=== PATIENT | male | born 1940 | race African-American/Black ===

== ENCOUNTER 2016-05-12 12:15 | Inpatient (IN) | payer OTHER ==
[~2016-05-12] VITALS: Ht 175.3 cm; Wt 87.5 kg
--- NOTE | ~2016-05-12 | H ---
[facility] [place] [address] HISTORY AND PHYSICAL Name: ZOË PAIZ Room #: 454-P [facility] IN ..#: [id number] Admission: 05/12/16 Attend Phys: Don Moore MD Discharge: 05/15/16 Date of : 38 Report #: [id number] THIS REPORT FOR: //name// CC: Don BENNETT PCP TYPE OF DICTATION: Admission H and P after [id number] encounter. I did see the patient and examined him on the day of admission. CHIEF COMPLAINT: Found by his family at his living apartment, shivering, hypothermic. HISTORY OF PRESENT ILLNESS: A 76-year-old male with dementia who was living alone in his apartment followed by his children. They were trying to get in contact with him for the last 2 days without any luck, and then his daughter today tried to go to his apartment and he opened the door after some time and he was shivering and he was weak in his lower extremity in his underwear only. The daughter reported that she found the cold water running in the bathroom and she notes that he did not take his medicines for the last 3 days. He stated that he was stuck in the tub for 14 hours. He reported that he got into bed around noon yesterday and did not get out until this morning. The patient's children reported that she found him with the bathtub overflowing with cold water. The patient is incoherent in his talk and he is confused for now, but he denies pain. He denies fever or chills. REVIEW OF SYSTEMS: Except that mentioned in HPI, all other systems are negative. PAST MEDICAL HISTORY: Positive for: 1. Dementia. 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 3. Hypertension. 4. High cholesterol. CURRENT MEDICATIONS: See admission reconciliation sheet. ALLERGIES: No known drug allergies. SOCIAL HISTORY: He does not smoke, drink, or take any illicit drugs. He is living by himself at home. PHYSICAL EXAMINATION: GENERAL: He is confused, not giving straight answers. VITAL SIGNS: His blood pressure is 141/91, temperature 33.6, pulse 100, respirations 18. HEENT: PERRLA. Intact extraocular muscles. No icterus. NECK: Supple, no JVD, no bruit, no thyroid. [facility] [address] [place] [address] HISTORY AND PHYSICAL Name: ZOË PAIZ Room #: 454-P [facility]#: [id number] Admission: 05/12/16 Attend Phys: Don Moore MD Discharge: 05/15/16 Date of : 39 Report #: [id number] CHEST: Good air entry in both sides. Normal respiratory effort. CARDIOVASCULAR: Regular rate and rhythm. No murmur, rub, or gallop. Normal S1, S2. ABDOMEN: Lax, nontender, positive bowel sounds, no organomegaly appreciated. EXTREMITIES: No cyanosis, clubbing, or edema. NEUROLOGIC: Cranial nerves 2-12 are intact. No focal neurological signs. SKIN: Intact, cold to touch, no rash or ulcers. PSYCHIATRIC: A and O x 3. Confused, but with normal affect. LABORATORY DATA: Sodium is 150, potassium 3.5, chloride 108, carbon dioxide 20, anion gap 22, BUN 30, creatinine 2.3, glucose 103, lactic acid is 5.2, calcium 8.2. Troponin less than 0.04. White count is 15.9, hemoglobin 15.8, hematocrit 49.0, normal differential. UA is pending. CT of the head did not show any acute change and also chest x-ray did not show any acute change. ASSESSMENT AND PLAN: 1. Sepsis. The patient meets the criteria for sepsis for now, so we are going to start him on IV antibiotic, broad spectrum antibiotics, and try to figure out source of the infection if we can. UA is pending for now, but we are going to cover him with antibiotic and if we find any infection, then we may narrow his spectrum of coverage. In the same time, blood cultures and urine cultures will be obtained before starting any IV antibiotics. 2. Acute renal failure with creatinine 2.3. We are going to give the patient some IV fluids in the form of half normal saline secondary to hypernatremia and follow his kidney status. 3. Hypernatremia. We are going to give him some may be D5 half normal saline and check his sodium after few hours. 4. Lactic acidosis. We are going to as mentioned above treating him as sepsis and we are going to follow on the level of the lactic acid. This patient is going to be monitored closely and his medicines will be adjusted accordingly. The patient is currently full code and we are going to do DVT and GI prophylaxis. <ELECTRONICALLY SIGNED> By: Don Moore MD 05/23/16 1709 1428 190 Don Moore MD /nt
[~2016-05-12 12:15] MED LIST: ARICEPT 5 MG TAB5 MG PO; ASPIRIN81 M2 PO; ATORVASTATIN CA40 MG PO; HYDROCODONE-AP1 EA10 PO; LISINOPRIL40 MG PO; NEXIUM40 MG PO; NORCO 5-325 TA1 EACH PO; PROAIR HFA8.5 GM INH; VITAMIN D 5050000 I1 PO
[2016-05-12 12:17] VITALS: BP 141/91
[2016-05-12 12:45] LABS: HEMOGLOBIN 15.8 gm/dL (14.0-18.0); MCH 27.7 pg (26.0-34.0); MCHC 32.2 % (28.0-37.0); MCV 86.1 fL (80.0-100.0); PLATELET COUNT 304 thou/uL (150-400); RBC 5.69 mil/uL (4.50-6.00); WBC 15.9 thou/uL (4.0-11.0)
[2016-05-12 12:46] LABS: MANUAL DIFF YES
[2016-05-12 13:13] LABS: ABSOLUTE NEUTROPHILS 13.4 thou/uL (1.4-8.2); ANISOCYTOSIS 1+; TOTAL CELL COUNT 100
[2016-05-12 13:29] LABS: ANION GAP 22 mmol/L (7-16); BUN 30 mg/dL (7-18); CALCIUM 8.2 mg/dL (8.5-10.1); CHLORIDE 108 mmol/L (98-107); CO2 20 mmol/L (21-32); CREATININE 2.3 mg/dL (0.6-1.3); GLUCOSE 103 mg/dL (70-99); POTASSIUM 3.5 mmol/L (3.5-5.1); SODIUM 150 mmol/L (136-145); TROPONIN-I < 0.04 ng/mL (<0.04-0.07)
[2016-05-12 14:29] VITALS: BP 104/77
[2016-05-12 14:38] LABS: URINE BILIRUBIN NEGATIVE (Negative); URINE BLOOD 3+ (Negative); URINE COLOR YELLOW; URINE GLUCOSE-RANDOM* NEGATIVE (Negative); URINE KETONES NEGATIVE (Negative); URINE LEUKOCYTES-REFLEX NEGATIVE (Negative); URINE PROTEIN (DIPSTICK) 1+ (Negative); URINE SPECIFIC GRAVITY 1.025 (1.003-1.035); URINE UROBILINOGEN 0.2 E.U./dl (0.2-1.0)
[2016-05-12 14:50] LABS: CASTS None Seen /LPF (None Seen); CRYSTALS None Seen /LPF (None Seen); SQUAMOUS None Seen /LPF (0-3); URINE RBC 0-2 Rare /HPF (0-2); URINE WBC-REFLEX 0-5 Rare /HPF (0-5)
[2016-05-12 15:30] VITALS: BP 121/47
[2016-05-12 20:04] VITALS: BP 105/67
[2016-05-12 23:50] VITALS: BP 103/61
[2016-05-13 01:19] LABS: HEMATOCRIT 36.2 % (42.0-52.0); MCH 27.1 pg (26.0-34.0); MCHC 32.6 % (28.0-37.0); RBC 4.36 mil/uL (4.50-6.00); RDW 16.5 % (10.5-14.5); WBC 16.3 thou/uL (4.0-11.0)
[2016-05-13 01:24] LABS: HEMOGLOBIN 11.8 gm/dL (14.0-18.0)
[2016-05-13 01:46] LABS: ALBUMIN 2.5 g/dL (3.4-5.0); CALCIUM 7.3 mg/dL (8.5-10.1); CREATININE 1.5 mg/dL (0.6-1.3); POTASSIUM 3.5 mmol/L (3.5-5.1); TOTAL BILIRUBIN 2.2 mg/dL (<0.1-1.0); TOTAL PROTEIN 5.9 g/dL (6.4-8.2)
[2016-05-13 03:44] VITALS: BP 112/69
[2016-05-13 07:22] VITALS: BP 110/76
[2016-05-13 08:00] VITALS: BP 110/76
[2016-05-13 13:45] VITALS: BP 118/86
[2016-05-13 16:20] VITALS: BP 116/71
[2016-05-13 19:20] VITALS: BP 129/70
[2016-05-14 04:10] VITALS: BP 116/71
[2016-05-14 05:36] LABS: ABSOLUTE NEUTROPHILS 4.5 thou/uL (1.4-8.2); BASOPHILS 1.3 % (0.0-2.0); EOSINOPHILS 7.3 % (0.0-3.0); HEMATOCRIT 32.9 % (42.0-52.0); LYMPHOCYTES 29.6 % (24.0-44.0); MCH 27.9 pg (26.0-34.0); MCHC 33.5 % (28.0-37.0); MCV 83.4 fL (80.0-100.0); PLATELET COUNT 223 thou/uL (150-400); POLYS 51.8 % (36.0-66.0); RBC 3.94 mil/uL (4.50-6.00); RDW 16.8 % (10.5-14.5); WBC 8.8 thou/uL (4.0-11.0)
[2016-05-14 05:46] LABS: MANUAL DIFF NO
[2016-05-14 05:49] LABS: CALCIUM 7.9 mg/dL (8.5-10.1); CREATININE 1.2 mg/dL (0.6-1.3); POTASSIUM 3.5 mmol/L (3.5-5.1)
[2016-05-14 09:13] VITALS: BP 120/76
[2016-05-14 12:04] VITALS: BP 118/70
[2016-05-14 12:08] VITALS: BP 118/70
[2016-05-14 16:22] VITALS: BP 114/69
[2016-05-14 19:46] VITALS: BP 113/69
[2016-05-15 03:50] VITALS: BP 113/64
[2016-05-15 05:43] LABS: ABSOLUTE NEUTROPHILS 4.5 thou/uL (1.4-8.2); BASOPHILS 1.3 % (0.0-2.0); EOSINOPHILS 7.2 % (0.0-3.0); HEMATOCRIT 32.4 % (42.0-52.0); HEMOGLOBIN 10.8 gm/dL (14.0-18.0); LYMPHOCYTES 28.5 % (24.0-44.0); MANUAL DIFF NO; MCH 27.7 pg (26.0-34.0); MCHC 33.4 % (28.0-37.0); MONOCYTES 10.8 % (1.0-8.0); PLATELET COUNT 238 thou/uL (150-400); POLYS 52.2 % (36.0-66.0); RDW 16.6 % (10.5-14.5); WBC 8.7 thou/uL (4.0-11.0)
[2016-05-15 05:59] LABS: CALCIUM 8.1 mg/dL (8.5-10.1); CREATININE 1.1 mg/dL (0.6-1.3); POTASSIUM 3.6 mmol/L (3.5-5.1)
[2016-05-15 08:10] VITALS: BP 117/78
[2016-05-15 12:30] VITALS: BP 135/78
[2016-05-15 16:23] VITALS: BP 135/78
== END 2016-05-15 16:43 | disposition home or self-care (01) | DRG 871 ==
LOC: ER 12:15 → EROBS 14:04 → 4W 14:04
PROVIDERS: Emergency Medicine; Hospitalist
DX: A41.9 Sepsis, unspecified organism (principal); N17.0 Acute kidney failure with tubular necrosis; E87.2 Acidosis; I69.951 Hemiplegia and hemiparesis following unspecified cerebrovascular disease affecting right dominant side; E87.0 Hyperosmolality and hypernatremia; I10 Essential (primary) hypertension; T68.XXXA Hypothermia, initial encounter; D64.9 Anemia, unspecified; Z60.2 Problems related to living alone; E86.0 Dehydration; Z79.82 Long term (current) use of aspirin; Z79.899 Other long term (current) drug therapy
CPT/HCPCS: 10045

== ENCOUNTER 2016-08-27 15:24 | Inpatient (IN) | payer OTHER ==
[~2016-08-27] VITALS: Ht 175.3 cm; Wt 82.1 kg
--- NOTE | ~2016-08-27 | 2DMMODE ---
[facility] [place] [address] 2 D/M-MODE ECHOCARDIOGRAM Name: CHENCHOZOË Garcia Room #: 420-P [facility]#: [id number] Admission: 08/27/16 Attend Phys: Brandon Loredo, Discharge: Date of : 38 Date of Service: 08/29/16 1301 Report #: [id number] THIS REPORT FOR: //name// APPROVED REPORT Study performed: 08/29/2016 09:54:34 EXAM: Comprehensive 2D, Doppler, and color-flow Echocardiogram Patient Location: In-Patient Room #: 420 Blood Pressure: 130/78 mmHg HR: 81 bpm Other Information Study Quality: Adequate Indications Hypertension/HDD Volumes Left Atrial Volume (Systole) Single Plane 4CH: 22.99 mL Single Plane 2CH: 25.34 mL LA ESV Index: 13.00 mL/m2 Aortic Valve AoV Peak Tarik.: 1.18 m/s AO Peak Gr.: 6.55 mmHg LV Max P.71 mmHg LV Max: 0.82 m/s Mitral Valve E/A Ratio: 0.8 MV Decel. Time: 238.74 ms MV E Max Tarik.: 0.77 m/s MV A Tarik.: 0.95 m/s MV PHT: 69.23 ms Pulmonary Valve PV Peak Tarik.: 1.00 m/s PV Peak Gr.: 4.04 mmHg Tricuspid Valve RAP Estimate: 5.00 mmHg [facility] [address] [place] [address] 2 D/M-MODE ECHOCARDIOGRAM Name: ZOË PAIZ Room #: 420-P [facility] IN ..#: [id number] Admission: 08/27/16 Attend Phys: Brandon Loredo, Discharge: Date of : 39 Date of Service: 08/29/16 1301 Report #: [id number] Left Ventricle The left ventricle is normal size. There is normal LV segmental wall motion. There is normal left ventricular wall thickness. Left ventricular systolic function is normal. The left ventricular ejection fraction is within the normal range. LVEF is 55-60%. Grade I - abnormal relaxation pattern. Right Ventricle The right ventricle is normal size. The right ventricular systolic function is normal. Atria The left atrium size is normal. The right atrium size is normal. Aortic Valve The aortic valve is grossly normal in structure. No aortic regurgitation is present. There is no aortic valvular stenosis. Mitral Valve The mitral valve is normal in structure. There is no mitral valve regurgitation noted. No evidence of mitral valve stenosis. Tricuspid Valve The tricuspid valve is normal in structure. There is no tricuspid valve regurgitation noted. Pulmonic Valve The pulmonary valve is normal in structure. There is no pulmonic valvular regurgitation. Great Vessels The aortic root is normal in size. IVC is normal in size and collapses with >50% inspiration Pericardium There is no pericardial effusion. <Conclusion> Left ventricular systolic function is normal. There is normal LV segmental wall motion. LVEF 55-60%. Grade I - abnormal relaxation pattern. The aortic valve is grossly normal in structure. No aortic regurgitation or stenosis. The mitral valve is normal in structure. There is no mitral valve [facility] [address] [address] 2 D/M-MODE ECHOCARDIOGRAM Name: ZOË PAIZ Room #: 420-P [facility] IN [facility]#: [id number] Admission: 08/27/16 Attend Phys: Brandon Loredo, Discharge: Date of : 39 Date of Service: 08/29/16 1301 Report #: [id number] regurgitation noted. Pulmonary artery could not be reliably ascertained. There is no pericardial effusion. <ELECTRONICALLY SIGNED> By: Marcos Montana MD, FACC 08/29/16 130 00 00 Marcos Montana MD, FACC /INF
--- NOTE | ~2016-08-27 | HC ---
[facility] [place] [address] CONSULTATION Name: ZOË PAIZ Room #: 420-P [facility] IN ..#: [id number] Admission: 08/27/16 Attend Phys: Brandon Loredo MD Discharge: Date of : 39 Report #: [id number] THIS REPORT FOR: //name// CC: Brandon Bernstein HISTORY OF PRESENT ILLNESS: The patient is a 76-year-old -O[place]i male with a prior history of a CVA 4 years ago with residual right-sided weakness. He has had problems with worsening falls with 3 falls over the last couple of weeks. He has the right-sided weakness, drags his right foot and his right leg can give out. He lives alone and his family is concerned. He does have a lifeline. He was admitted for further evaluation. PAST MEDICAL HISTORY: Includes the above noted CVA with right-sided weakness/hemiparesis. He has a history of hypertension and high cholesterol. There is a note of some dementia. HABITS: Former smoker, quit greater than a year ago. Past history of ETOH usage. MEDICATIONS: Please see the full medication listing. ALLERGIES: No known drug allergies. SOCIAL HISTORY: Lives in an apartment alone, premorbid cane ambulator. He has the lifeline as noted above. There are no steps. He used a scooter for longer distances. REVIEW OF SYSTEMS: Did not offer any current complaints of chest pain, shortness of breath or abdominal discomfort. No focal extremity pain complaints. Notes that the right leg will give way at the knee. There was a history of some left shoulder pain, although he did not complain of specific pain to me. FAMILY HISTORY: Noncontributory. PHYSICAL EXAMINATION: GENERAL: A 76-year-old male, in no obvious distress. He is alert and oriented. VITAL SIGNS: Temperature is 98.6, pulse 82, respirations 16, and blood pressure 123/80. HEENT: Appeared to be benign. NEUROLOGIC: Cranial nerves are grossly intact. Facies are symmetric. He is able to verbalize reasonably well. EXTREMITIES: He has functional range of motion of the left upper and left lower extremity without obvious focal weakness. Right upper extremity strength is probably a grade 4-/5. DTRs are trace to 1. Right lower extremity strength is [address] [address] CONSULTATION Name: ZOË PAIZ Room #: 420-P [facility] IN ..#: [id number] Admission: 08/27/16 Attend Phys: Brandon Loredo MD Discharge: Date of : 39 Report #: [id number] 4- to 3+/5. DTRs are trace to 1. He has intact sensation to simultaneous stimulation. There is no clonus. He is contact guard for basic transfers and short distance ambulation. ASSESSMENT: A 76-year-old white male with the following problem list: 1. Right-sided hemiparesis. 2. Frequent falls with gait instability. 3. History of cerebrovascular accident. 4. History of dementia, but nevertheless has [facility]. 5. Hypertension. 6. Elevated cholesterol. PLAN: We are assessing the patient to see if he meets criteria for an acute 5 North rehab stay. We will follow along with you. By: [id number] 54 Abdullahi Pagan MD /nt
[2016-08-27 15:29] VITALS: BP 113/84
[2016-08-27] MEDS ORDERED: LIPITOR80 MG PO (15:32)
[2016-08-27] MEDS ORDERED: ZYRTEC10 M5 PO (15:33)
[2016-08-27] MEDS ORDERED: VITAMIN B-12500 MCG PO (15:34)
[2016-08-27] MEDS ORDERED: NORVASC10 MG PO (15:34)
[2016-08-27 16:24] LABS: ABSOLUTE NEUTROPHILS 6.6 thou/uL (1.4-8.2); BASOPHILS 1.2 % (0.0-2.0); EOSINOPHILS 6.3 % (0.0-3.0); HEMATOCRIT 33.6 % (42.0-52.0); HEMOGLOBIN 11.2 gm/dL (14.0-18.0); LYMPHOCYTES 18.3 % (24.0-44.0); MCH 26.5 pg (26.0-34.0); MCHC 33.4 g/dL (28.0-37.0); MCV 79.5 fL (80.0-100.0); PLATELET COUNT 445 thou/uL (150-400); POLYS 66.2 % (36.0-66.0); RBC 4.23 mil/uL (4.50-6.00); RDW 16.3 % (10.5-14.5)
[2016-08-27 16:26] LABS: MANUAL DIFF NO
[2016-08-27 16:31] LABS: CALCIUM 9.3 mg/dL (8.5-10.1); CREATININE 1.2 mg/dL (0.7-1.3); POTASSIUM 3.4 mmol/L (3.5-5.1)
[2016-08-27 17:39] LABS: URINE BILIRUBIN NEGATIVE (Negative); URINE BLOOD 1+ (Negative); URINE COLOR YELLOW; URINE GLUCOSE-RANDOM* NEGATIVE (Negative); URINE KETONES NEGATIVE (Negative); URINE LEUKOCYTES-REFLEX NEGATIVE (Negative); URINE PROTEIN (DIPSTICK) TRACE (Negative)
[2016-08-27 17:42] LABS: CASTS None Seen /LPF (None Seen); SQUAMOUS None Seen /LPF (0-3); URINE RBC 3-10 Few /HPF (0-2); URINE WBC-REFLEX None Seen /HPF (0-5)
[2016-08-27 17:43] LABS: CRYSTALS None Seen /LPF (None Seen)
[2016-08-27 19:26] VITALS: BP 113/67
[2016-08-27 20:33] VITALS: BP 138/87
[2016-08-28 05:32] LABS: HEMATOCRIT 34.5 % (42.0-52.0); HEMOGLOBIN 11.3 gm/dL (14.0-18.0); MCHC 32.7 g/dL (28.0-37.0); MCV 79.4 fL (80.0-100.0); RBC 4.34 mil/uL (4.50-6.00); RDW 16.1 % (10.5-14.5); WBC 9.6 thou/uL (4.0-11.0)
[2016-08-28 05:41] VITALS: BP 127/82
[2016-08-28 05:47] LABS: CALCIUM 9.4 mg/dL (8.5-10.1); CREATININE 1.5 mg/dL (0.7-1.3); POTASSIUM 3.7 mmol/L (3.5-5.1)
[2016-08-28 07:10] VITALS: BP 123/80
[2016-08-28 20:00] VITALS: BP 125/73
[2016-08-29 04:31] VITALS: BP 121/70
[2016-08-29 05:45] LABS: CHOLESTEROL 112 mg/dL (<200); HDL CHOLESTEROL 30 mg/dL (>40); LDL CHOLESTEROL 61 mg/dL (<100); TC:HDL 3.7 Ratio (Not establshd); TRIGLYCERIDE 105 mg/dL (<150); VLDL 21 mg/dL (<40)
[2016-08-29 05:50] LABS: SERUM ASSESSMENT Clear
[2016-08-29 07:17] VITALS: BP 130/78
[2016-08-30 02:10] LABS: GLYCOHEMOGLOBIN (HGB A1C) 6.2 % (4.8-5.6)
== END 2016-08-29 15:33 | DRG 57 ==
LOC: ER 15:24 → EROBS 17:44 → 4E 17:44
PROVIDERS: Emergency Medicine; Internal Medicine; Psychiatry & Neurology Neurology
DX: G81.91 Hemiplegia, unspecified affecting right dominant side (principal); E44.0 Moderate protein-calorie malnutrition; R53.81 Other malaise; I10 Essential (primary) hypertension; E78.00 Pure hypercholesterolemia, unspecified; F03.90 Unspecified dementia, unspecified severity, without behavioral disturbance, psychotic disturbance, mood disturbance, and anxiety; W18.39XA Other fall on same level, initial encounter; R26.81 Unsteadiness on feet; E78.5 Hyperlipidemia, unspecified; D63.8 Anemia in other chronic diseases classified elsewhere; Y93.89 Activity, other specified; Z68.26 Body mass index [BMI] 26.0-26.9, adult; Y92.89 Other specified places as the place of occurrence of the external cause; Y99.8 Other external cause status; Z87.891 Personal history of nicotine dependence
CPT/HCPCS: 10084

== ENCOUNTER 2016-08-28 14:53 | Inpatient (IN) | payer OTHER ==
[~2016-08-28] VITALS: Ht 175.3 cm; Wt 83.1 kg
--- NOTE | ~2016-08-28 | H ---
[facility] [place] [address] HISTORY AND PHYSICAL Name: ZOË PAIZ Room #: 505-P [facility] IN ..#: [id number] Admission: 08/29/16 Attend Phys: Abdullahi Pagan MD Discharge: Date of : 39 Report #: [id number] THIS REPORT FOR: //name// CC: Abdullahi Bernstein DATE OF SERVICE: 08/29/2016 DATE OF SERVICE: 08/30/2016 HISTORY OF PRESENT ILLNESS: This is 76-year-old -[place]ian male with a prior history of CVA 4 years ago with residual right-sided weakness. He has had problems with worsening falls with 3 falls over the last couple of weeks. He has the right-sided weakness, drags his right foot and his right leg can give out. He lives alone and his family was having more and more concerns. He was initially admitted for acute in-hospital evaluation. He was seen by Neurology. MRI of the brain showed atrophy with an MRA showing tortuosity, but no significant stenosis. His lipids profile was normal and he is on a statin. He also takes aspirin. With his significant functional decline and concern with the frequent falls, the right-sided weakness, he has been admitted for an acute in-hospital inpatient rehabilitation stay. PAST MEDICAL HISTORY: Includes the above noted CVA with right-sided weakness and hemiparesis. He has a history of hypertension and high cholesterol. There is a note of some dementia. HABITS: Former smoker, quit greater than a year ago. Past history of ETOH usage. MEDICATIONS: Please see the full medication listing. Each of these was individually reconciled upon admission. The medication list includes his medications as well as supplements, [id number] medications, etc. ALLERGIES: No known drug allergies. SOCIAL HISTORY: Lives in an apartment alone, premorbid cane ambulator. He has a life line. There are no steps. He used to scooter for longer distances. REVIEW OF SYSTEMS: No current complaints of chest pain, shortness of breath, abdominal discomfort. No focal extremity pain complaints other than at the right leg will give away at the knee and contribute to his falls. He had some prior left shoulder pain. Did not offer any other complaints regarding the other bodily systems. FAMILY HISTORY: Noncontributory. [address] [address] HISTORY AND PHYSICAL Name: ZOË PAIZ Room #: 505-P [facility] IN .R.#: [id number] Admission: 08/29/16 Attend Phys: Abdullahi Pagan MD Discharge: Date of : 39 Report #: [id number] PHYSICAL EXAMINATION: GENERAL: A 76-year-old -G[place]ian male in no obvious distress. VITAL SIGNS: Last recorded temperature 97.9, pulse 86, respirations 19, blood pressure 132/78. The patient is alert, oriented, appears to be a good historian. HEENT: Facies appeared to be symmetric. Cranial nerves are grossly intact. HEENT appeared benign. CHEST: Sounded clear to auscultation. CARDIOVASCULAR: Regular rate and rhythm. ABDOMEN: Bowel sounds positive, nontender. GENITOURINARY AND RECTAL: Deferred. EXTREMITIES: He has functional range of motion of the left upper and left lower extremity without obvious focal weakness. Right upper extremity strength is a grade 4- to 4/5. DTRs are trace to 1. Right lower extremity strength is a grade 4- to 3+/5. DTRs are trace to 1. Sensation was intact to simultaneous stimulation bilateral upper and lower extremities. There is no clonus. He has been needing contact assistance for basic transfers and short distance mobility with monitoring regarding fall prevention. ASSESSMENT: A 76-year-old right-handed -G[place]ian male with the following problem list: 1. Right-sided hemiparesis. 2. Frequent falls with gait instability. 3. History of cerebrovascular accident. 4. History previously of dementia, but nevertheless was living alone in an apartment with life line. He appears to be a good historian with basic history taking. 5. Hypertension. 6. Elevated cholesterol. PLAN: The patient is admitted for an acute in-hospital inpatient rehabilitation stay. From a postadmission physician evaluation perspective, there are no relevant changes since the preadmission screening. Please see the above review of prior and current medical and functional conditions and comorbidities. Please see the patient's previous and current functional status. As far as risk of complications, he does have the above noted comorbidities. Initial plan of care involves the interdisciplinary acute inpatient rehabilitation program with the goal of maximizing the patient's functional independence, so that he can hopefully return back to his prior living situation. Measurable functional goals would be for the patient to become modified independent with transfers, mobility, ADLs, gait and especially to decrease the falls and improve his overall independence. Prognosis is reasonably good. We would hope for a fairly short length of stay may be 7-10 days or up to 2 weeks depending upon how he does. Potential barriers would include his medical comorbidities and decreased functional status. [facility] [address] [place] [address] HISTORY AND PHYSICAL Name: ZËO PAIZ Room #: 505-P [facility] IN M.R.#: [id number] Admission: 08/29/16 Attend Phys: Abdullahi Pagan MD Discharge: Date of : 39 Report #: [id number] Patient diagnosis is appropriate. He meets the medical necessity criteria and we will have Neurology continue to follow as well as Internal Medicine for medical management. He does have the tolerance for therapies and has appropriate discharge goals back to the home setting. <ELECTRONICALLY SIGNED> By: Abdullahi Pagan MD 09/10/16 1518 0816 0911 Abdullahi Pagan MD /nt
--- NOTE | ~2016-08-28 | D ---
[facility] [place] [address] DISCHARGE SUMMARY Name: ZOË PAIZ Radha Room #: 505-P [facility] IN ..#: [id number] Admission: 08/29/16 Attend Phys: Abdullahi Pagan MD Discharge: 09/16/16 Date of : 39 Report #: [id number] THIS REPORT FOR: //name// CC: Abdullahi Bernstein DATE OF SERVICE: 09/16/2016 DATE OF SERVICE: 09/16/2016 HISTORY OF PRESENT ILLNESS: The patient is a 76-year-old -[place]er male with prior history of CVA with residual right-sided weakness. He had problems with worsening falls with right-sided weakness and dragging his right foot and right leg giving out. His family was having more and more concerns. He was originally admitted to the hospital seen by Neurology. He was noted to have significant functional decline with right-sided weakness and frequent falls. MRI showed atrophy of the brain with MRA showing tortuosity but no significant stenosis. The patient was admitted with right-sided hemiparesis, frequent falls with gait instability, history of a prior CVA and a history of some previous dementia. Please see the full admission note dictation. HOSPITAL COURSE: The patient was involved in the inpatient rehabilitation program. He initially was improving as far as his functional mobility and ADLs although was not fell that he can go back to the home setting. We had a discussion with the patient's daughter and a decision was made that the patient would need to go for a long term facility stay initially upon discharge from rehabilitation. The patient then again running a fever up to a 101. He had issues with right knee pain and swelling and noted effusion. He was seen by Orthopedics. It is thought that infection was not significantly likely and that this was most likely a flare from osteoarthritis. The knee was tapped by Orthopedics. This was thought to most likely be inflammatory in nature with cultures negative and no crystal seen. It may consider a steroid injection after the final culture results are negative. His overall function decline. Neurology has ordered an MRI of the right knee as well as the right shoulder, which was causing him some pain. The patient also underwent ultrasound examination of his abdomen with the febrile episode and the elevation of his liver function test. The ultrasound of the abdomen revealed gallbladder pack with stones. There was mild wall thickening. He also has some renal cysts. The patient is now being transferred off the acute rehab vergara back to the medical service for further completion of the workup and likely surgical consultation, etc. DISCHARGE DIAGNOSES: Include: 1. Right-sided hemiparesis. [address] [address] DISCHARGE SUMMARY Name: ZOË PAIZ Room #: 505-P [facility] IN ..#: [id number] Admission: 08/29/16 Attend Phys: Abdullahi Pagan MD Discharge: 09/16/16 Date of : 39 Report #: [id number] 2. Frequent falls with gait instability. 3. History of a cerebrovascular accident. 4. Cholecystitis with multiple gallstones noted on abdominal ultrasound of his thigh. 5. Febrile episode as above. 6. Right knee effusion, status post chafing. 7. Right shoulder discomfort with MRI pending. Plan again being discharged back to the acute Med/Surg vergara. We will defer further management, activity level, etc. as per the accepting service. <ELECTRONICALLY SIGNED> By: Abdullahi Pagan MD 09/18/16 1528 1314 1536 Abdullahi Pagan MD /nt
--- NOTE | ~2016-08-28 | HC ---
[facility] [place] [address] CONSULTATION Name: ZOË PAIZ Room #: 505-P [facility] IN ..#: [id number] Admission: 08/29/16 Attend Phys: Abdullahi Pagan MD Discharge: Date of : 39 Report #: [id number] THIS REPORT FOR: //name// CC: Abdullahi Bernstein DATE OF SERVICE: 09/13/2016 ORTHOPEDIC CONSULT AND PROCEDURE NOTE DATE OF ADMISSION: 08/29/2016. DATE OF CONSULTATION: 09/13/2016. REASON FOR CONSULTATION: Right knee pain and swelling. HISTORY OF PRESENT ILLNESS: The patient is a 76-year-old male with a 2-week history of right knee swelling. He reports having problems with that knee since his stroke approximately 4 years ago. He denies any new injury. He denies any significant numbness or tingling in the extremities. Denies any other extremity complaints. He reports the pain is sharp to dull and worse with motion. He has had no specific treatment for it. PAST MEDICAL HISTORY: Significant for right-sided weakness and hemiparesis after a stroke, hypertension, hypercholesterolemia. There is history of some mild dementia. SOCIAL HISTORY: He denies smoking or drinking alcohol. He is right hand dominant. His family reports that he does not use a wheelchair. He does use a scooter at home and a walker. He lives alone in an apartment. He does have 2 daughters at his bedside. ALLERGIES: No known drug allergies. MEDICATIONS: The patient's MAR was reviewed, which shows magnesium oxide, oxycodone, , vitamin D, donepezil, vitamin B12, atorvastatin, aspirin, amlodipine, pantoprazole, loratadine, senna, milk of magnesium, docusate, and bisacodyl. LABORATORY DATA: Done on 09/13/2016, show a white blood cell count 11.7, hemoglobin 10.2, hematocrit 30.7, and platelet count of 17.3. Chemistry on 09/13/2016, shows sodium of 135, glucose is elevated at 135. Magnesium is low at 1.7. Albumin is low at 2.2. PHYSICAL EXAMINATION: GENERAL: He is alert and oriented times 3. He interacts appropriately. He [address] [address] CONSULTATION Name: ZOË PAIZ Room #: 505-P [facility] IN [facility]#: [id number] Admission: 08/29/16 Attend Phys: Abdullahi Pagan MD Discharge: Date of : 39 Report #: [id number] does appear to have some confusion. He is a well-developed, well-nourished male with a normal affect. He is pleasant to converse with. VITAL SIGNS: Most recent vital signs show a temperature of 37.4, pulse rate 121, respiration rate 16, blood pressure 137/84, and pulse oximetry is 93% on room air. He has his 2 daughters and grandchildren present at the bedside and during the aspiration part of the visit. EXTREMITIES: Examination of his bilateral upper extremities, skin is clean, dry and intact. He has brisk capillary refill. He makes full fist, full extension, full wrist, forearm, functional elbow and shoulder motion. He has no tenderness to palpation of the bilateral sternum and clavicles, bilateral shoulders, arms, elbows, forearms, wrists and hands. Right lower extremity exam, he has some mild diffuse edema at the entire extremity and moderate knee joint effusion without erythema. There is warmth and diffuse knee joint tenderness. There is no pain with range of motion of the right hip, ankle, or foot. There is significant pain with range of motion of the right knee. Left lower extremity examination: Sensation is intact to light touch throughout. He has brisk capillary refill. EHL, FHL, dorsiflexion and plantar flexion are intact. He has no pain with range of motion of his left knee, ankle, hip or knee. RADIOGRAPHS: AP and lateral of the right knee show knee joint effusion. No acute injury. IMPRESSION AND PLAN: Right knee joint effusion. Infection is not significantly likely, most likely this a flare from osteoarthritis. I discussed the diagnosis and recommend aspiration to rule out infection. We will also send the fluid for crystal analysis, cell count, culture, Gram stain. The patient and family consented. DESCRIPTION OF PROCEDURE: Under sterile conditions, 1 mL of 1% lidocaine was injected in subcutaneous tissue only at the superolateral aspect of the knee, and then, after adequate anesthesia was obtained and under sterile conditions, an 18-gauge needle was inserted into the knee joint and 24 mL of yellow serous fluid was obtained with appropriate viscosity. It was sent down to the lab, and the wound was dressed with sterile gauze. He tolerated the procedure well. We will continue to follow him. Questions were encouraged and answered to the best of my ability. By: [id number] Valerie Soto MD /nt
--- NOTE | ~2016-08-28 | PLAN ---
[facility] [place] [address] REHAB UNIT PLAN OF CARE Name: ZOË PAIZ Room #: 505-P ADM IN M.R.#: [id number] Admission: 08/29/16 Attend Phys: Abdullahi Pagan MD Discharge: Date of : 39 Report #: [id number] THIS REPORT FOR: //name// CC: Abdullahi Bernstein DATE OF SERVICE: 08/31/2016 The patient was seen back earlier. He was in no distress. Last recorded temperature 36.7, pulse 92, respirations 18, blood pressure 150/82. He has had some complaints of left shoulder pain for which he has received pain medications. He is voiding into the urinal without difficulty. He has been involved in the therapy program and transfers are moderate assist with gait min assist up to 45 feet with a front-wheeled walker. In occupational therapy, upper body dressing is max assist with lower body dressing dependent. Speech therapy is noted to have mild comprehensive deficits, mild expressive deficits. ASSESSMENT: 1. Right-sided hemiparesis. 2. Frequent falls with gait instability. 3. History of cerebrovascular accident. 4. Previous history of dementia, but nevertheless was living alone in an apartment with [facility]. 5. Hypertension. 6. Elevated cholesterol. PLAN: The overall plan of care is based on the preadmission screen, post-admission physician evaluation and information garnered from therapy assessments. 1. Estimated length of stay is probably at least 10 days to 2 weeks and likely longer as he does have significant functional deficits, especially with his ADLs and has definite balance concerns with the frequent falls. 2. Medical prognosis is reasonably good. 3. Anticipated interventions includes the interdisciplinary acute inpatient rehabilitation program with PT, OT and speech, rehabilitation nursing assisting regarding medication management, skin care prophylaxis, bowel and bladder issues and nursing education. Neurology is involved as well as the consulting physicians. 4. Anticipated functional outcomes would be for the patient to become modified independent at least at the walker level for mobility and ADLs that he can hopefully return back to the home setting. We are also assessing cognitive issues. 5. Discharge destination would be back to the home setting as noted above. 6. Expected therapy by discipline includes PT, OT and speech 1 [place] [address] REHAB UNIT PLAN OF CARE Name: PAIZZOË Radha Room #: 505-P [facility] IN [facility]#: [id number] Admission: 08/29/16 Attend Phys: Abdullahi Pagan MD Discharge: Date of : 39 Report #: [id number] each five days a week throughout the duration of the acute inpatient rehabilitation stay. <ELECTRONICALLY SIGNED> By: Abdullahi Pagan MD 09/10/16 1523 1046 13 Abdullahi Pagan MD /nt
--- NOTE | ~2016-08-28 | HC ---
[facility] [place] [address] CONSULTATION Name: ZOË PAIZ Room #: 505-P [facility] IN ..#: [id number] Admission: 08/29/16 Attend Phys: Abdullahi Pagan MD Discharge: Date of : 39 Report #: [id number] THIS REPORT FOR: //name// CC: Abdullahi Pagan Saranya Bernstein DATE OF SERVICE: 09/01/2016 ATTENDING PHYSICIAN: Abdullahi Pagan M.D. GEOGRAPHICAL HISTORIAN: Omer Egan, PhD CLINICAL PRESENTATION: The patient is a 76-year-old male admitted to the rehabilitation unit at [facility] for comprehensive inpatient rehabilitation program to improve functional mobility, activities of daily living, and self-care and mental status secondary to right hemiparesis. He has had a history of frequent falls with gait instability. A prior cerebrovascular accident is reported. The patient has a history of hypertension and elevated cholesterol. A complete description of his medical condition, history, and medications can be found in his medical record. Neuropsychological consultation was requested to provide assistance in the assessment of cognitive and emotional status and to provide recommendations and services. The patient is reported to have been living alone in his home. He has five children. Assistance has been made available by his daughter who is durable power of employment law attorney. He is described as having frequent falls that began following his stroke, which was a left CVA with right hemiparesis. However, recently the falling has increased in frequency. 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 He has a 12th grade education. There is no prior history of treatment for depression or anxiety that is reported. TECHNIQUES UTILIZED: Clinical interview, review of medical records, staff consultation and behavioral observation, mini mental status exam 2 standard version, clock drawing and calibrated ideational fluency assessment (letter and category). EXAMINATION FINDINGS: The patient was alert and cooperative with the assessment. He accurately described events surrounding his admission and the purpose of his treatment. There is no evidence of aphasia. His thoughts are logical and goal oriented. There is no report of auditory or visual hallucinations. Current symptoms include difficulty with sleep, reduced appetite, and fatigue. His family indicates he has been more socially withdrawal and has been isolated in the home. Difficulty with memory and word finding are also noted. [facility] [address] [place] [address] CONSULTATION Name: ZOË PAIZ Room #: 505-P [facility] IN [facility].#: [id number] Admission: 08/29/16 Attend Phys: Abdullahi Pagan MD Discharge: Date of : 39 Report #: [id number] His performance on the MMSE 2 brief version was in the mild range of impairment with a raw score of 13 and a T-score of 37. He was alert and oriented, but was 0/3 for immediate recall after a brief time delay and distraction. His performance improved on the MMSE 2 standard version to 26 of 30, which is within the average range with a T score of 47 and percentile rank of 38. He was 4/5 for serial 7's. The patient was unable to copy a simple geometric design. He was able to accurately indicate or place the hands of a clock at a designated time. Decreased upper extremity strength is noted as a result of the earlier left CVA. Performance in letter and category fluency is extremely low. Letter fluency was a raw score of 6 and category fluency a raw score of 6. Total verbal fluency was a raw score of 12, which is extremely low. Severe impairment in verbal expression is often seen with executive dysfunction. DIAGNOSTIC IMPRESSION: Major neurocognitive disorder (dementia), unspecified - without behavior disorder, mild severity. Unspecified depressive disorder. RECOMMENDATIONS: Treatment program for depression that includes the use of antidepressant medication. Supportive counseling may also assist his adjustment. He should be encouraged to engage in social recreation and attempt to improve his social support. Assistance in the management of his medications will be necessary along with encouragement to engage in formally pleasurable activity in which he is still capable. social interaction for recreation. The use of a memory and organization notebook will also be helpful to encourage initiative in compensating for areas of deficit. Thank you very much for allowing me to provide the consultation on this patient. <ELECTRONICALLY SIGNED> By: Omer Egan, PhD 09/07/16 1606 1620 [id number] Omer Egan, PhD /nt
[~2016-08-28 14:53] MED LIST changes: +LIPITOR80 MG PO; +NORVASC10 MG PO; +VITAMIN B-12500 MCG PO; +ZYRTEC10 M5 PO
[2016-08-29 15:35] VITALS: BP 109/71
[2016-08-30 04:38] VITALS: BP 132/78
[2016-08-30 16:00] VITALS: BP 141/81
[2016-08-31 03:36] VITALS: BP 150/82
[2016-08-31 15:30] VITALS: BP 125/76
[2016-09-01 05:43] VITALS: BP 128/72
[2016-09-01 15:45] VITALS: BP 123/81
[2016-09-02 04:37] VITALS: BP 128/78
[2016-09-02 07:41] VITALS: BP 129/62
[2016-09-02 16:00] VITALS: BP 133/83
[2016-09-03 05:07] VITALS: BP 131/68
[2016-09-03 16:00] VITALS: BP 130/93
[2016-09-04 04:20] VITALS: BP 127/85
[2016-09-04 08:43] VITALS: BP 140/78
[2016-09-04 16:00] VITALS: BP 136/82
[2016-09-05 05:25] VITALS: BP 121/76
[2016-09-05 08:56] VITALS: BP 112/80
[2016-09-05 16:00] VITALS: BP 139/81
[2016-09-06 05:23] VITALS: BP 120/80
[2016-09-06 07:05] LABS: URINE BILIRUBIN NEGATIVE (Negative); URINE BLOOD 1+ (Negative); URINE COLOR YELLOW; URINE GLUCOSE-RANDOM* NEGATIVE (Negative); URINE KETONES NEGATIVE (Negative); URINE LEUKOCYTES-REFLEX NEGATIVE (Negative); URINE PROTEIN (DIPSTICK) NEGATIVE (Negative)
[2016-09-06 08:20] LABS: SQUAMOUS 0-3 Few /LPF (0-3)
[2016-09-06 08:21] LABS: CASTS None Seen /LPF (None Seen); CRYSTALS None Seen /LPF (None Seen); URINE RBC 0-2 Rare /HPF (0-2); URINE WBC-REFLEX None Seen /HPF (0-5)
[2016-09-06 16:15] VITALS: BP 132/82
[2016-09-07 06:13] VITALS: BP 126/74
[2016-09-07 16:01] VITALS: BP 110/68
[2016-09-08 05:31] VITALS: BP 132/84
[2016-09-08 15:48] VITALS: BP 134/82
[2016-09-09 05:27] VITALS: BP 120/80
[2016-09-09 07:34] VITALS: BP 120/84
[2016-09-09 15:55] VITALS: BP 119/83
[2016-09-10 05:15] LABS: CREATININE 1.1 mg/dL (0.7-1.3); MAGNESIUM 1.4 mg/dL (1.8-2.4); POTASSIUM 3.7 mmol/L (3.5-5.1); TOTAL BILIRUBIN 0.4 mg/dL (<0.1-1.0); TOTAL PROTEIN 7.8 g/dL (6.4-8.2)
[2016-09-10 05:34] VITALS: BP 121/87
[2016-09-10 06:35] LABS: HEMATOCRIT 29.9 % (42.0-52.0); HEMOGLOBIN 10.1 gm/dL (14.0-18.0); MCH 25.9 pg (26.0-34.0); MCHC 33.9 g/dL (28.0-37.0); MCV 76.4 fL (80.0-100.0); PLATELET COUNT 361 thou/uL (150-400); RBC 3.91 mil/uL (4.50-6.00); RDW 16.6 % (10.5-14.5); WBC 8.8 thou/uL (4.0-11.0)
[2016-09-10 06:36] LABS: MANUAL DIFF YES
[2016-09-10 07:40] VITALS: BP 118/80
[2016-09-10 09:57] LABS: ABSOLUTE NEUTROPHILS 5.6 thou/uL (1.4-8.2); TOTAL CELL COUNT 100
[2016-09-10 09:58] LABS: ANISOCYTOSIS 1+
[2016-09-10 15:45] VITALS: BP 122/82
[2016-09-11 05:16] VITALS: BP 115/79
[2016-09-11 06:09] LABS: ALBUMIN 2.2 g/dL (3.4-5.0); CALCIUM 8.5 mg/dL (8.5-10.1); CREATININE 1.1 mg/dL (0.7-1.3); MAGNESIUM 1.6 mg/dL (1.8-2.4); TOTAL BILIRUBIN 0.4 mg/dL (<0.1-1.0); TOTAL PROTEIN 7.2 g/dL (6.4-8.2)
[2016-09-11 07:42] VITALS: BP 123/80
[2016-09-11 16:07] VITALS: BP 124/62
[2016-09-12 03:22] VITALS: BP 124/76
[2016-09-12 04:26] LABS: ABSOLUTE NEUTROPHILS 6.7 thou/uL (1.4-8.2); BASOPHILS 0.7 % (0.0-2.0); EOSINOPHILS 5.6 % (0.0-3.0); HEMATOCRIT 32.5 % (42.0-52.0); HEMOGLOBIN 10.8 gm/dL (14.0-18.0); LYMPHOCYTES 20.2 % (24.0-44.0); MCH 25.7 pg (26.0-34.0); MCHC 33.2 g/dL (28.0-37.0); MCV 77.3 fL (80.0-100.0); MONOCYTES 9.4 % (1.0-8.0); PLATELET COUNT 385 thou/uL (150-400); POLYS 64.1 % (36.0-66.0); RDW 16.7 % (10.5-14.5); WBC 10.5 thou/uL (4.0-11.0)
[2016-09-12 04:28] LABS: CALCIUM 9.3 mg/dL (8.5-10.1); CREATININE 1.2 mg/dL (0.7-1.3); MAGNESIUM 1.5 mg/dL (1.8-2.4)
[2016-09-12 04:39] LABS: MANUAL DIFF NO
[2016-09-12 08:00] VITALS: BP 123/69
[2016-09-12 16:00] VITALS: BP 120/83
[2016-09-13 04:56] VITALS: BP 124/79
[2016-09-13 06:42] LABS: ALBUMIN 2.2 g/dL (3.4-5.0); CALCIUM 8.9 mg/dL (8.5-10.1); CREATININE 1.2 mg/dL (0.7-1.3); MAGNESIUM 1.7 mg/dL (1.8-2.4); POTASSIUM 4.2 mmol/L (3.5-5.1); TOTAL PROTEIN 8.3 g/dL (6.4-8.2)
[2016-09-13 10:00] LABS: ABSOLUTE NEUTROPHILS 8.1 thou/uL (1.4-8.2); BASOPHILS 1.3 % (0.0-2.0); EOSINOPHILS 4.9 % (0.0-3.0); HEMATOCRIT 30.7 % (42.0-52.0); HEMOGLOBIN 10.2 gm/dL (14.0-18.0); LYMPHOCYTES 12.9 % (24.0-44.0); MANUAL DIFF NO; MCH 25.7 pg (26.0-34.0); MCHC 33.2 g/dL (28.0-37.0); MCV 77.3 fL (80.0-100.0); MONOCYTES 11.2 % (1.0-8.0); PLATELET COUNT 396 thou/uL (150-400); POLYS 69.7 % (36.0-66.0); RBC 3.97 mil/uL (4.50-6.00); RDW 17.3 % (10.5-14.5); WBC 11.7 thou/uL (4.0-11.0)
[2016-09-13 16:42] VITALS: BP 137/84
[2016-09-13 17:30] LABS: URINE BILIRUBIN NEGATIVE (Negative); URINE BLOOD 2+ (Negative); URINE COLOR YELLOW; URINE GLUCOSE-RANDOM* NEGATIVE (Negative); URINE KETONES NEGATIVE (Negative); URINE LEUKOCYTES-REFLEX NEGATIVE (Negative); URINE PROTEIN (DIPSTICK) TRACE (Negative); URINE UROBILINOGEN 0.2 E.U./dl (0.2-1.0)
[2016-09-13 17:39] LABS: CASTS None Seen /LPF (None Seen); CRYSTALS None Seen /LPF (None Seen); SQUAMOUS 0-3 Few /LPF (0-3); URINE RBC 3-10 Few /HPF (0-2)
[2016-09-13 17:40] LABS: URINE WBC-REFLEX None Seen /HPF (0-5)
[2016-09-13 18:58] LABS: BF NUCLEATED CELLS 10127; BF RBC 1265
[2016-09-13 18:59] LABS: CLARITY CLOUDY; COLOR YELLOW; TOTAL VOLUME 24 mL
[2016-09-13 19:07] LABS: MANUAL DIFF YES
[2016-09-13 19:44] LABS: BF MACROPHAGE 0; BF NEUTROPHILS 98
[2016-09-13 23:07] LABS: BF CRYSTALS None seen (None seen)
[2016-09-14 05:58] VITALS: BP 138/71
[2016-09-14 16:00] VITALS: BP 115/85; BP 136/90
[2016-09-14 19:30] VITALS: BP 135/81
[2016-09-14 20:29] VITALS: BP 117/67
[2016-09-14 21:29] LABS: HEMATOCRIT 30.8 % (42.0-52.0); HEMOGLOBIN 10.2 gm/dL (14.0-18.0); MCH 25.4 pg (26.0-34.0); MCHC 33.1 g/dL (28.0-37.0); MCV 76.7 fL (80.0-100.0); RBC 4.02 mil/uL (4.50-6.00); RDW 17.1 % (10.5-14.5); WBC 14.6 thou/uL (4.0-11.0)
[2016-09-14 21:38] LABS: CREATININE 1.6 mg/dL (0.7-1.3); POTASSIUM 4.4 mmol/L (3.5-5.1)
[2016-09-14 21:55] LABS: TOTAL BILIRUBIN 1.4 mg/dL (<0.1-1.0); TOTAL PROTEIN 8.9 g/dL (6.4-8.2)
[2016-09-14 21:56] LABS: ALBUMIN 2.1 g/dL (3.4-5.0)
[2016-09-15 04:38] VITALS: BP 128/80
[2016-09-15 09:21] VITALS: BP 119/76
[2016-09-15 15:50] VITALS: BP 118/74
[2016-09-16 05:02] LABS: ALBUMIN 1.7 g/dL (3.4-5.0); CALCIUM 8.4 mg/dL (8.5-10.1); CREATININE 1.1 mg/dL (0.7-1.3); TOTAL BILIRUBIN 0.9 mg/dL (<0.1-1.0); TOTAL PROTEIN 7.7 g/dL (6.4-8.2); URIC ACID* 4.7 mg/dL (2.6-7.2)
[2016-09-16 05:21] VITALS: BP 129/78
[2016-09-16 05:34] LABS: HEMATOCRIT 26.5 % (42.0-52.0); HEMOGLOBIN 8.8 gm/dL (14.0-18.0); MCH 25.4 pg (26.0-34.0); MCHC 33.2 g/dL (28.0-37.0); MCV 76.6 fL (80.0-100.0); RBC 3.46 mil/uL (4.50-6.00); RDW 17.1 % (10.5-14.5); WBC 12.5 thou/uL (4.0-11.0)
[2016-09-16] MEDS ORDERED: NAMENDA 10 MG T10 MG PO (16:15)
== END 2016-09-16 14:19 | disposition short-term general hospital (02) | DRG 57 ==
PROVIDERS: Family Medicine; Hospitalist; Internal Medicine Geriatric Medicine; Nurse Practitioner; Nurse Practitioner Acute Care; Nurse Practitioner Family; Orthopaedic Surgery Hand Surgery; Physical Medicine & Rehabilitation
DX: I69.351 Hemiplegia and hemiparesis following cerebral infarction affecting right dominant side (principal); E44.0 Moderate protein-calorie malnutrition; N17.9 Acute kidney failure, unspecified; K80.10 Calculus of gallbladder with chronic cholecystitis without obstruction; R26.9 Unspecified abnormalities of gait and mobility; F03.90 Unspecified dementia, unspecified severity, without behavioral disturbance, psychotic disturbance, mood disturbance, and anxiety; I10 Essential (primary) hypertension; E78.5 Hyperlipidemia, unspecified; F01.50 Vascular dementia, unspecified severity, without behavioral disturbance, psychotic disturbance, mood disturbance, and anxiety; F32.9 Major depressive disorder, single episode, unspecified; M25.461 Effusion, right knee; E83.42 Hypomagnesemia; D72.829 Elevated white blood cell count, unspecified; N40.0 Benign prostatic hyperplasia without lower urinary tract symptoms; Z60.2 Problems related to living alone; Z68.27 Body mass index [BMI] 27.0-27.9, adult; Z79.82 Long term (current) use of aspirin; Z79.899 Other long term (current) drug therapy
CPT/HCPCS: 10112

== ENCOUNTER 2016-09-16 14:42 | Inpatient (IN) | payer OTHER ==
[~2016-09-16] VITALS: Ht 175.3 cm; Wt 61.5 kg
--- NOTE | ~2016-09-16 | S ---
[facility] [place] [address] SURGICAL PATH RPT PROCEDURE Name: SHANT PAIZ Room #: 436-P [facility] IN M.R.#: [id number] Admission: 09/16/16 Date of : 39 Discharge: 09/23/16 Report #: [id number] Path Case #: [id number] PATHOLOGY REPORT COLLECTION DATE: 09/20/2016 RECEIVED DATE: 09/20/2016 SUBMITTING PHYS: Dr. Hector Yoo OTHER PHYS: Dr. Ha Bernstein SPECIMEN(S) RECEIVED: A.Gallbladder * * * * * * * * * * * * FINAL DIAGNOSIS: "Gallbladder," cholecystectomy: - Acute and chronic cholecystitis. - Cholelithiasis. (BRIELLEW:; d/t: 09/24/16) PATHOLOGIST: Vijaya Sweeney M.D. REPORT ELECTRONICALLY SIGNED BY: Vijaya Sweeney M.D. DATE/TIME: 09/24/2016 16:58 * * * * * * * * * * * * GROSS PATHOLOGY: Received in formalin labeled "PaizShant, gallbladder," is a 8.7 x 2.9 x 1.9 cm, previously opened and torn gallbladder with white junior rough serosal surfaces. Opening the gallbladder reveals green mancia-brown rough mucosa and an average wall thickness of 0.2 cm. Calculi are present and no masses are noted grossly. Database Reporting Consultant sections from the body and fundus are submitted along with the proximal margin in cassette A1. (LAI; 09/23/2016) CLINICAL HISTORY: Subacute and chronic cholecystitis with cholelithiasis INITIAL CPT CODE(S): A; 44417 Professional services performed by [facility] at [facility] [address] , [place] [address] Technical services performed by [facility] at [address] [place] [address] [address] [place] [address] SURGICAL PATH RPT PROCEDURE Name: SHANT PAIZ Room #: 436-P [facility] IN ..#: [id number] Admission: 09/16/16 Date of : 39 Discharge: 09/23/16 Report #: [id number] Path Case #: [id number] [address]. [facility] [address] [address] PHONE: [phone] DIRECTOR: Hugh [place] M.D. * * * END OF REPORT * * *
--- NOTE | ~2016-09-16 | O ---
[facility] [place] [address] OPERATIVE REPORT Name: CHENCHOZOË Radha Room #: 436-P [facility] IN ..#: [id number] Admission: 09/16/16 Attend Phys: Jonny Salamanca MD Discharge: 09/23/16 Date of : 39 Report #: [id number] THIS REPORT FOR: //name// CC: Jonny Bernstein DATE OF SERVICE: 09/20/2016 PREOPERATIVE DIAGNOSIS: Subacute and chronic cholecystitis with cholelithiasis. POSTOPERATIVE DIAGNOSIS: Subacute and chronic cholecystitis with cholelithiasis. OPERATIVE PROCEDURE: Laparoscopic cholecystectomy with operative cholangiogram. SURGEON: Hector Yoo MD. PREPARATOR: Sherrill Dixon MS3. INDICATIONS: The patient is 76-year-old, presented with bilateral upper abdominal pain. He had some other ongoing medical issues. He denies nausea and vomiting. He has had no food intolerance, but his pain was in the upper abdomen. He does admit to ongoing bloating sensation. Otherwise, he has had no change in gastrointestinal function. His ultrasound was positive for cholelithiasis. The tip of the skin demonstrated slow visualization of the gallbladder. One of his liver function tests was slightly elevated. The patient had a similar episode in May with leukocytosis, fever, and elevated liver function tests. This episode was on rehabilitation when he developed fever, leukocytosis, and some mild elevation of his liver function tests similar to the episode in May of 2016. OPERATIVE PROCEDURE: The patient had thorough discussion of the procedure, benefits, and risks. Discussion was held with his daughter who is the durable power of environmental attorney. He was on IV antibiotics when he was brought to the operating room suite, and had satisfactory induction of general endotracheal anesthesia. The patient's entire abdomen was prepped and draped in the usual sterile procedure with DuraPrep solution. After draping was completed, an appropriate timeout was then performed. Open cutdown procedure was performed at the infraumbilical position, below the previous upper midline incision. The pneumoperitoneum was established, the trocar had been placed under direct vision. An upper midline 5 mm trocar port was then placed under direct vision and two lateral 5 mm trocar ports were placed under direct vision. The gallbladder had adhesions to the inferior surface from the omentum. Photographs were taken and made part of the medical record. The gallbladder was grasped and retracted cephalad and laterally. The cystic duct triangle was clearly delineated. The cystic duct was identified milked in a retrograde manner toward [address] [address] OPERATIVE REPORT Name: ZOË PAIZ Room #: 436-P [facility] IN [facility]#: [id number] Admission: 09/16/16 Attend Phys: Jonny Salaamnca MD Discharge: 09/23/16 Date of : 39 Report #: [id number] the gallbladder. A clip was placed toward the gallbladder. A cystotomy was then performed. An intraoperative cholangiogram was performed utilizing the taut catheter. Initially, there was minimal flow of contrast into the duodenum, but with additional pressure and after glucagon administration, there was free flow of contrast into the duodenum. No filling defects were found. The upper extrahepatic biliary ductal system was also well identified. The taut catheter was removed. The cystic duct was triply ligated and divided with the Sonicision Harmonic scalpel. The cystic artery was identified, doubly clipped proximally and divided with the Sonicision. The gallbladder was resected from the fossa utilizing the Harmonic scalpel Sonicision device. The gallbladder was then placed into an Endobag and removed from the peritoneal cavity under direct vision. An 0 PDS suture was placed in a [id number] fashion at the infraumbilical port site. Surgicel was placed in the gallbladder fossa. After satisfactory hemostasis was obtained, one 15-Icelandic KATRIN drain was brought out through a lateral port site. Hemostasis was complete. Pneumoperitoneum was evacuated. The 0 PDS suture ligated in place. Skin margins approximated with subcuticular 4-0 Monocryl. The drain was sutured in place with 2-0 nylon. The estimated blood loss was less than 25 mL. The patient returned to the recovery room in stable and satisfactory condition. <ELECTRONICALLY SIGNED> By: Hector Yoo MD, FACS 10/01/16 0858 [id number] Hector Yoo MD, FACS /nt
[2016-09-16 14:30] VITALS: BP 127/65
[2016-09-16 14:45] VITALS: BP 103/57
[2016-09-16] MEDS ORDERED: NAMENDA 10 MG T10 MG PO (16:15)
[2016-09-16 20:13] VITALS: BP 123/87
[2016-09-17 04:43] VITALS: BP 131/74
[2016-09-17 06:41] LABS: HEMATOCRIT 29.7 % (42.0-52.0); HEMOGLOBIN 9.9 gm/dL (14.0-18.0); MCH 25.3 pg (26.0-34.0); MCHC 33.3 g/dL (28.0-37.0); PLATELET COUNT 435 thou/uL (150-400); RBC 3.91 mil/uL (4.50-6.00); RDW 17.3 % (10.5-14.5); WBC 12.5 thou/uL (4.0-11.0)
[2016-09-17 06:44] LABS: MANUAL DIFF YES
[2016-09-17 06:55] LABS: ALBUMIN 1.9 g/dL (3.4-5.0); CALCIUM 9.3 mg/dL (8.5-10.1); POTASSIUM 3.7 mmol/L (3.5-5.1); TOTAL BILIRUBIN 0.8 mg/dL (<0.1-1.0); TOTAL PROTEIN 8.4 g/dL (6.4-8.2)
[2016-09-17 07:29] LABS: ABSOLUTE NEUTROPHILS 8.5 thou/uL (1.4-8.2); ANISOCYTOSIS 1+; TOTAL CELL COUNT 100
[2016-09-17 07:30] LABS: POLYCHROMASIA OCCASIONAL
[2016-09-17 08:00] VITALS: BP 123/77
[2016-09-17 16:00] VITALS: BP 120/75
[2016-09-17 19:35] VITALS: BP 119/69
[2016-09-18 04:35] VITALS: BP 125/73
[2016-09-18 06:25] LABS: ABSOLUTE NEUTROPHILS 7.7 thou/uL (1.4-8.2); BASOPHILS 0.2 % (0.0-2.0); EOSINOPHILS 6.7 % (0.0-3.0); HEMATOCRIT 28.9 % (42.0-52.0); HEMOGLOBIN 9.9 gm/dL (14.0-18.0); LYMPHOCYTES 12.7 % (24.0-44.0); MCH 25.9 pg (26.0-34.0); MCHC 34.3 g/dL (28.0-37.0); MCV 75.5 fL (80.0-100.0); PLATELET COUNT 457 thou/uL (150-400); POLYS 71.4 % (36.0-66.0); RBC 3.83 mil/uL (4.50-6.00); RDW 17.7 % (10.5-14.5); WBC 10.7 thou/uL (4.0-11.0)
[2016-09-18 06:32] LABS: MANUAL DIFF NO
[2016-09-18 06:56] LABS: ALBUMIN 1.9 g/dL (3.4-5.0); CALCIUM 9.4 mg/dL (8.5-10.1); POTASSIUM 3.5 mmol/L (3.5-5.1); TOTAL BILIRUBIN 0.6 mg/dL (<0.1-1.0); TOTAL PROTEIN 8.1 g/dL (6.4-8.2)
[2016-09-18 08:00] VITALS: BP 130/83
[2016-09-18 15:39] VITALS: BP 114/69
[2016-09-18 19:30] VITALS: BP 116/68
[2016-09-19 05:23] VITALS: BP 120/80
[2016-09-19 06:27] LABS: MCH 25.4 pg (26.0-34.0); MCHC 33.4 g/dL (28.0-37.0); MCV 76.1 fL (80.0-100.0); RBC 3.95 mil/uL (4.50-6.00); RDW 17.3 % (10.5-14.5); WBC 10.7 thou/uL (4.0-11.0)
[2016-09-19 06:36] LABS: INR 1.1; PROTIME 10.9 Seconds (9.3-11.4)
[2016-09-19 06:44] LABS: ALBUMIN 1.8 g/dL (3.4-5.0); CALCIUM 8.9 mg/dL (8.5-10.1); POTASSIUM 3.4 mmol/L (3.5-5.1); TOTAL BILIRUBIN 0.4 mg/dL (<0.1-1.0)
[2016-09-19 08:00] VITALS: BP 113/65
[2016-09-19 16:00] VITALS: BP 116/76
[2016-09-19 20:03] VITALS: BP 128/73
[2016-09-20 04:14] VITALS: BP 126/70
[2016-09-20 06:59] LABS: HEMATOCRIT 30.9 % (42.0-52.0); HEMOGLOBIN 10.2 gm/dL (14.0-18.0); MCH 25.7 pg (26.0-34.0); MCV 77.8 fL (80.0-100.0); RBC 3.98 mil/uL (4.50-6.00); RDW 17.2 % (10.5-14.5); WBC 10.6 thou/uL (4.0-11.0)
[2016-09-20 07:29] LABS: ALBUMIN 1.9 g/dL (3.4-5.0); CALCIUM 9.3 mg/dL (8.5-10.1); CREATININE 1.1 mg/dL (0.7-1.3); POTASSIUM 3.5 mmol/L (3.5-5.1); TOTAL BILIRUBIN 0.5 mg/dL (<0.1-1.0); TOTAL PROTEIN 8.1 g/dL (6.4-8.2)
[2016-09-20 08:00] VITALS: BP 121/73
[2016-09-20 16:00] VITALS: BP 129/79
[2016-09-20 16:08] VITALS: BP 130/80
[2016-09-20 19:39] VITALS: BP 117/72
[2016-09-21 03:58] VITALS: BP 117/76
[2016-09-21 06:09] LABS: HEMATOCRIT 29.8 % (42.0-52.0); HEMOGLOBIN 9.8 gm/dL (14.0-18.0); MCH 25.2 pg (26.0-34.0); MCHC 32.9 g/dL (28.0-37.0); MCV 76.5 fL (80.0-100.0); RBC 3.89 mil/uL (4.50-6.00); RDW 17.2 % (10.5-14.5); WBC 13.2 thou/uL (4.0-11.0)
[2016-09-21 06:16] LABS: CALCIUM 9.1 mg/dL (8.5-10.1); CREATININE 1.1 mg/dL (0.7-1.3)
[2016-09-21 06:29] LABS: POTASSIUM 4.6 mmol/L (3.5-5.1)
[2016-09-21 08:00] VITALS: BP 110/73
[2016-09-21 15:25] VITALS: BP 121/65
[2016-09-21 19:21] VITALS: BP 112/56
[2016-09-22 03:46] VITALS: BP 112/63
[2016-09-22 05:56] LABS: HEMATOCRIT 27.5 % (42.0-52.0)
[2016-09-22 06:07] LABS: CALCIUM 8.6 mg/dL (8.5-10.1); POTASSIUM 3.6 mmol/L (3.5-5.1)
[2016-09-22 08:00] VITALS: BP 125/70
[2016-09-22 10:10] LABS: HEMOGLOBIN 9.1 gm/dL (14.0-18.0); RBC 3.57 mil/uL (4.50-6.00); WBC 13.3 thou/uL (4.0-11.0)
[2016-09-22 10:11] LABS: MCH 25.4 pg (26.0-34.0); RDW 17.2 % (10.5-14.5)
[2016-09-22 16:00] VITALS: BP 120/66
[2016-09-22 19:20] VITALS: BP 132/69
[2016-09-23 05:05] VITALS: BP 122/72
[2016-09-23 06:09] LABS: HEMATOCRIT 28.7 % (42.0-52.0); HEMOGLOBIN 9.8 gm/dL (14.0-18.0); MCH 26.3 pg (26.0-34.0); MCHC 34.4 g/dL (28.0-37.0); MCV 76.4 fL (80.0-100.0); RBC 3.75 mil/uL (4.50-6.00); RDW 17.7 % (10.5-14.5); WBC 10.6 thou/uL (4.0-11.0)
[2016-09-23 06:16] LABS: CALCIUM 8.8 mg/dL (8.5-10.1); CREATININE 0.9 mg/dL (0.7-1.3); POTASSIUM 3.5 mmol/L (3.5-5.1)
[2016-09-23 08:00] VITALS: BP 128/76
[2016-09-23] MEDS ORDERED: FLAGYL500 MG PO (10:40)
[2016-09-23] MEDS ORDERED: FLOMAX0.4 MG PO (10:40)
[2016-09-23] MEDS ORDERED: HYDROCODON-ACE1 EAC7 PO (10:40)
[2016-09-23] MEDS ORDERED: CIPRO500 MG PO (10:40)
== END 2016-09-23 15:28 | DRG 853 ==
LOC: 4S 14:42
PROVIDERS: Family Medicine; Nurse Practitioner Family; Surgery
PROC: 0FT44ZZ Resection of Gallbladder, Percutaneous Endoscopic Approach (ICD-10-PCS; principal; 2016-09-20)
PROC: BF121ZZ Fluoroscopy of Gallbladder using Low Osmolar Contrast (ICD-10-PCS; principal; 2016-09-20)
DX: A41.9 Sepsis, unspecified organism (principal); E43 Unspecified severe protein-calorie malnutrition; K80.12 Calculus of gallbladder with acute and chronic cholecystitis without obstruction; I69.951 Hemiplegia and hemiparesis following unspecified cerebrovascular disease affecting right dominant side; K56.7 Ileus, unspecified; M25.561 Pain in right knee; F03.90 Unspecified dementia, unspecified severity, without behavioral disturbance, psychotic disturbance, mood disturbance, and anxiety; I10 Essential (primary) hypertension; E78.00 Pure hypercholesterolemia, unspecified; K59.00 Constipation, unspecified; D50.9 Iron deficiency anemia, unspecified; N40.0 Benign prostatic hyperplasia without lower urinary tract symptoms; K21.9 Gastro-esophageal reflux disease without esophagitis; E78.5 Hyperlipidemia, unspecified; Z68.20 Body mass index [BMI] 20.0-20.9, adult; Z87.891 Personal history of nicotine dependence
CPT/HCPCS: 10100; 50010; 50101; 50249; 50331; 50411; 50525; 50555; 50900; 50962; 51975; 52266; 52287; 53307; 53314; 54022; 55245; 55317; 56462; 56525; 56526; 56531; 62110; 62900; 70005